=== PATIENT | male | born 1995 | race American Indian/Alaskan Native ===

== ENCOUNTER 2016-07-19 09:29 | Emergency (ER) | payer SELFPAY ==
[2016-07-19 09:39] VITALS: BP 131/84
--- NOTE | 2016-07-19 10:03 | XRay Report ---
CHEST 2 VIEWS INDICATION: Shortness of breath. COMPARISON: 11/11/2006 FINDINGS: PA and lateral chest radiographs again demonstrate normal heart size. Slightly prominent left pulmonary artery contour. No pleural effusions or CHF. Unremarkable bones. CONCLUSION: No acute chest process, as described. Please correlate. Thank you for the opportunity to participate in this patient's care.
[2016-07-19] MEDS ORDERED: PROVENTIL IH ONE (11:05)
--- NOTE | 2016-07-19 11:50 | Emergency Department Report ---
Entered by MARLENY MCARTHUR, acting as scribe for MARCOS MALDONADO PA. ED Asthma HPI - General Chief Complaint: Adult Asthma Stated Complaint: ASTHMA Time Seen by Provider: 07/19/16 11:05 Source: patient, family Mode of arrival: Ambulatory Limitations: No Limitations - History of Present Illness Initial Comments: 20 y/o male, with Hx of asthma, presents c/o wheezing that started last night as a result of running out of his meds 2 weeks ago. Sx includes SOB and cough but pt denies cold Sx, fever or chills. Meds include: ventilan, singular, flovent and albuterol. Pt also notes having seasonal allergies. MD Complaint: shortness of breath -: Last night Asthma History: adult onset Severity: mild Context: ran out of meds Associated Symptoms: dry cough - Related Data Current Asthma Therapy: other (ventilan, singular, flovent and albuterol) Previous Rx's Medication Instructions Recorded Last Taken Type ALBUTEROL Inhaler [Proair] 2 puff IH QID PRN #1 inhalation 07/19/16 Unknown Rx Albuterol Sulfate [Albuterol 0.63% 0.63 mg IH TID PRN #1 box 07/19/16 Unknown Rx NEBS] Fluticasone (Nf) [Flovent Hfa(Nf)] 2 puff IH BID #1 puff 07/19/16 Unknown Rx Montelukast [Singulair] 10 mg PO QPM #30 tablet 07/19/16 Unknown Rx Allergies Allergy/AdvReac Type Severity Reaction Status Date / Time No Known Allergies Allergy Unverified 07/19/16 09:35 ED Review of Systems Comment: All other systems reviewed and negative Constitutional: denies: chills, fever ENT: denies: other (Cold Sx, ) Respiratory: cough, shortness of breath, wheezing ED Past Medical Hx - Past Medical History Previous Medical History?: Yes Hx Asthma: Yes - Surgical History Past Surgical History?: No - Social History Smoking Status: Current Every Day Smoker Substance Use Type: Alcohol - Medications Home Medications: Home Medications Medication Instructions Recorded Confirmed Last Taken Type ALBUTEROL Inhaler [Proair] 2 puff IH QID PRN #1 inhalation 07/19/16 Unknown Rx Albuterol Sulfate [Albuterol 0.63% 0.63 mg IH TID PRN #1 box 07/19/16 Unknown Rx NEBS] Fluticasone (Nf) [Flovent Hfa(Nf)] 2 puff IH BID #1 puff 07/19/16 Unknown Rx Montelukast [Singulair] 10 mg PO QPM #30 tablet 07/19/16 Unknown Rx ED Physical Exam - General Limitations: No Limitations - Other Other exam information: GENERAL: Patient is alert and oriented x 3. No apparent distress, normal gait, atraumatic. HEAD: Head is normocephalic and atraumatic. EYES: Extraocular movements are intact. Pupils are equal, round, and reactive to light and accommodation. EARS: Symmetrical, atraumatic, non tender, ear canal clear with moderate cerumen , tympanic membrane non inflamed. Gross auditory nml bilaterally. NOSE: Nose symmetrical, nontender. Nares appeared normal. NECK: Supple. Non edematous, no carotid bruits. No lymphadenopathy or thyromegaly. LUNGS: Symmetrical with respiration. No rales or crackles, CTAB. Inspiratory/ Expiratory wheezing lower lungs, rhonchus on upper middle lobe HEART: Regular rate and rhythm with normal S1/S2 present. No murmurs, rubs, or gallops. EXTREMITIES/MUSCULOSKELETAL: No cyanosis, clubbing, rash, lesions or edema. Full ROM bilaterally. UE/LE Pulses 2+ bilaterally. LE and UE 5+ strength bilaterally SKIN: Warm and dry. No lesions, ulceration or induration present NEUROLOGIC: No focal deficit., Cranial nerves II - XII are grossly intact. No loss of sensation. No facial droop. PSYCHIATRIC: Mood is congruent with affect. ED Course Vital Signs 07/19/16 09:35 Temperature 98.2 F Pulse Rate 112 H Respiratory 22 Rate Blood Pressure 131/84 O2 Sat by Pulse 96 Oximetry ED Medical Decision Making - Medical Decision Making 20 y/o male, with Hx of asthma, presents c/o wheezing that started last night as a result of running out of his meds 2 weeks ago. Patient is in no acute distress at this time. He will be discharged home and is encouraged to follow up with a primary care provider. He is encouraged to return to the emergency room for any worsening symptoms. Discussed with patient refill his medications of Singulair 10 mg Prolene or Flovent and albuterol nebs for him to follow up with a primary care provider. I will refer him to [facility] for further management of chronic disease of asthma. ED Disposition Clinical Impression: Asthma Qualifiers: Asthma severity: unspecified severity Asthma complication type: uncomplicated Qualified Code(s): J45.909 - Unspecified asthma, uncomplicated Disposition: DISCHARGED TO HOME OR SELFCARE Is pt being admited?: No Does the pt Need Aspirin: No Condition: Stable Instructions: Asthma (ED) Additional Instructions: Please take albuterol pro-air Flovent and Singulair as prescribed. Follow up with the primary care provider for further evaluation and management of chronic asthma. Prescriptions: ALBUTEROL Inhaler [Proair] 2 puff IH QID PRN #1 inhalation PRN Reason: Shortness Of Breath Albuterol Sulfate [Albuterol 0.63% NEBS] 0.63 mg IH TID PRN #1 box PRN Reason: Wheezing Fluticasone (Nf) [Flovent Hfa(Nf)] 2 puff IH BID #1 puff Montelukast [Singulair] 10 mg PO QPM #30 tablet Referrals: PRIMARY CARE,MD [Primary Care Provider] - 3-5 Days [facility] [Outside] - 3-5 Days Forms: Work/School Release Form(ED) This documentation as recorded by the BLUE olmedo RYAN,accurately reflects the service I personally performed and the decisions made by me,MARCOS MALDONADO PA.
[2016-07-19] MEDS ORDERED: DELTASONE PO ONE (11:53)
== END 2016-07-19 11:59 | disposition home or self-care (01) ==
LOC: ED 09:29
DX: J45.909 Unspecified asthma, uncomplicated (principal); F17.200 Nicotine dependence, unspecified, uncomplicated
CPT/HCPCS: 71020; 99283; J7512

== ENCOUNTER 2016-09-13 06:59 | Emergency (ER) | payer SELFPAY ==
[2016-09-13 07:11] VITALS: BP 139/81
[2016-09-13] MEDS ORDERED: DUONEB 0.5 MG-3 MG/3 ML SOLN IH ONE ×3 (07:12→09:04)
[2016-09-13] MEDS ORDERED: DELTASONE PO ONE (07:13)
--- NOTE | 2016-09-13 08:01 | Emergency Department Report ---
ED Asthma HPI - General Chief Complaint: Adult Asthma Stated Complaint: ASTHMA Time Seen by Provider: 09/13/16 07:59 Source: patient Mode of arrival: Ambulatory Limitations: No Limitations - History of Present Illness Initial Comments: 20-year-old male past medical history asthma, smoker presents with complaint of wheeziness and asthma exacerbation since last night. Patient denies any history of intubations, last time he was in the ED was 2 years ago. On exam patient is speaking in full sentences no audible wheezing or stridor, states he has received prednisone and 2 nebulizer treatments since coming to the ED. Patient is ambulatory denies any significant respiratory distress states he feels significantly better. Denies any fevers chills or productive cough. States he ran out of his medicine including albuterol inhaler and nebulizer fluid at home. Patient does not know his baseline peak flow. Complaint: wheezing Onset/Timin -: days(s) Asthma History: childhood onset Severity: moderate Associated Symptoms: none - Related Data Previous Rx's Medication Instructions Recorded Last Taken Type ALBUTEROL Inhaler [Proair] 2 puff IH QID PRN #1 inhalation 07/19/16 Unknown Rx Albuterol Sulfate [Albuterol 0.63% 0.63 mg IH TID PRN #1 box 07/19/16 Unknown Rx NEBS] Fluticasone (Nf) [Flovent Hfa(Nf)] 2 puff IH BID #1 puff 07/19/16 Unknown Rx Montelukast [Singulair] 10 mg PO QPM #30 tablet 07/19/16 Unknown Rx ALBUTEROL Inhaler [ProAir HFA 2 puff IH QID PRN #1 inhalation 09/13/16 Unknown Rx Inhaler] ALBUTEROL NEB's [Proventil 0.083% 2.5 mg IH TID PRN #1 box 09/13/16 Unknown Rx NEBS] Prednisone [predniSONE 10 mg 10 mg PO .TAPER #1 tab.ds.pk 09/13/16 Unknown Rx (6-Day Pack, 21 Tabs)] Allergies Allergy/AdvReac Type Severity Reaction Status Date / Time No Known Allergies Allergy Verified 09/13/16 08:41 ED Review of Systems ROS: Stated complaint: ASTHMA Other details as noted in HPI Constitutional: denies: chills, fever Eyes: denies: eye pain, eye discharge, vision change ENT: denies: ear pain, throat pain Respiratory: wheezing. denies: cough, shortness of breath Cardiovascular: denies: chest pain, palpitations Endocrine: no symptoms reported Gastrointestinal: denies: abdominal pain, nausea, diarrhea Genitourinary: denies: urgency, dysuria Musculoskeletal: denies: back pain, joint swelling, arthralgia Skin: denies: rash, lesions Neurological: denies: headache, weakness, paresthesias Psychiatric: denies: anxiety, depression Hematological/Lymphatic: denies: easy bleeding, easy bruising ED Past Medical Hx - Past Medical History Hx Asthma: Yes - Surgical History Past Surgical History?: No - Social History Smoking Status: Current Every Day Smoker Substance Use Type: None - Medications Home Medications: Home Medications Medication Instructions Recorded Confirmed Last Taken Type ALBUTEROL Inhaler [Proair] 2 puff IH QID PRN #1 inhalation 07/19/16 Unknown Rx Albuterol Sulfate [Albuterol 0.63% 0.63 mg IH TID PRN #1 box 07/19/16 Unknown Rx NEBS] Fluticasone (Nf) [Flovent Hfa(Nf)] 2 puff IH BID #1 puff 07/19/16 Unknown Rx Montelukast [Singulair] 10 mg PO QPM #30 tablet 07/19/16 Unknown Rx ALBUTEROL Inhaler [ProAir HFA 2 puff IH QID PRN #1 inhalation 09/13/16 Unknown Rx Inhaler] ALBUTEROL NEB's [Proventil 0.083% 2.5 mg IH TID PRN #1 box 09/13/16 Unknown Rx NEBS] Prednisone [predniSONE 10 mg 10 mg PO .TAPER #1 tab.ds.pk 09/13/16 Unknown Rx (6-Day Pack, 21 Tabs)] ED Physical Exam - General Limitations: No Limitations General appearance: alert, in no apparent distress - Head Head exam: Present: atraumatic, normocephalic - Eye Eye exam: Present: normal appearance, PERRL, EOMI - ENT ENT exam: Present: mucous membranes moist - Neck Neck exam: Present: normal inspection - Respiratory Respiratory exam: Present: wheezes (mild bilateral wheezing on exam). Absent: respiratory distress - Cardiovascular Cardiovascular Exam: Present: regular rate, normal rhythm. Absent: systolic murmur, diastolic murmur, rubs, gallop - GI/Abdominal GI/Abdominal exam: Present: soft, normal bowel sounds - Rectal Rectal exam: Present: deferred - Extremities Exam Extremities exam: Present: normal inspection - Back Exam Back exam: Present: normal inspection - Neurological Exam Neurological exam: Present: alert, oriented X3 - Psychiatric Psychiatric exam: Present: normal affect, normal mood - Skin Skin exam: Present: warm, dry, intact, normal color. Absent: rash ED Course Vital Signs 09/13/16 09/13/16 09/13/16 07:04 07:16 07:32 Temperature 98 F Pulse Rate 98 H Pulse Rate [ 96 H 95 H Anterior Bilateral Throughout] Respiratory 20 Rate Respiratory 20 20 Rate [Anterior Bilateral Throughout] Blood Pressure 139/81 Blood Pressure 139/81 [Left] O2 Sat by Pulse 100 Oximetry 09/13/16 09/13/16 08:21 08:35 Temperature Pulse Rate Pulse Rate [ 96 H 95 H Anterior Bilateral Throughout] Respiratory Rate Respiratory 20 20 Rate [Anterior Bilateral Throughout] Blood Pressure Blood Pressure [Left] O2 Sat by Pulse Oximetry ED Medical Decision Making - Medical Decision Making A/P: asthma exacerbation, reactive airway disease 1- albuterol inhaler, albuterol nebulizer fluid, prednisone Dosepak 2- patient has experienced significant clinical relief of his wheezing, ambulating, 97% on room air O2 saturation 3- patient speaking in full sentences before discharge, we'll refer patient to primary care. I advised patient on smoking cessation. Critical care attestation.: If time is entered above; I have spent that time in minutes in the direct care of this critically ill patient, excluding procedure time. ED Disposition Clinical Impression: Asthma exacerbation Disposition: DC-01 TO HOME OR SELFCARE Is pt being admited?: No Does the pt Need Aspirin: No Condition: Stable Instructions: Asthma (ED), How to Stop Smoking (ED), Reactive Airways Disease ( ED) Prescriptions: ALBUTEROL Inhaler [ProAir HFA Inhaler] 2 puff IH QID PRN #1 inhalation PRN Reason: Shortness Of Breath ALBUTEROL NEB's [Proventil 0.083% NEBS] 2.5 mg IH TID PRN #1 box PRN Reason: Wheezing Prednisone [predniSONE 10 mg (6-Day Pack, 21 Tabs)] 10 mg PO .TAPER #1 tab.ds.pk Referrals: PRIMARY CAREMD [Primary Care Provider] - 3-5 Days [facility] [Outside] - 3-5 Days [facility] [Outside] - 3-5 Days KATHRYN ALEJANDRO MD [Staff Physician] - 3-5 Days Forms: Work/School Release Form(ED) Time of Disposition: 09:12
== END 2016-09-13 09:58 | disposition home or self-care (01) ==
LOC: ED 06:59
DX: J45.901 Unspecified asthma with (acute) exacerbation (principal); F17.210 Nicotine dependence, cigarettes, uncomplicated
CPT/HCPCS: 94640; 99283; J7512

== ENCOUNTER 2017-07-30 05:34 | Emergency (ER) | payer SELFPAY ==
[2017-07-30] MEDS ORDERED: DUONEB *Not for PRN Use IH ONE (05:41)
[2017-07-30] MEDS ORDERED: DELTASONE PO ONE (06:02)
[2017-07-30] MEDS ORDERED: ATROVENT IH ONE (07:36)
[2017-07-30] MEDS ORDERED: XOPENEX IH ONE (07:36)
--- NOTE | 2017-07-30 07:36 | Emergency Department Report ---
HPI - General Chief Complaint: Adult Asthma Time Seen by Provider: 07/30/17 07:17 - HPI HPI: Patient reports that he has difficulty breathing and history of asthma and nebulized treatment has not been helping. He said it started about 10:00 last night. Denies any fever. Reports some wheezing and some coughing. He said he started with him having a runny nose and progressed to cough and wheezing. Denies any nausea or vomiting. Denies any fever or chills. Patient says that he has a little short of breath with walking around but otherwise is okay when he rests. Denies any chest pain or abdominal pain. He is requesting a refill on his medication. Patient does not have a primary care physician. Pain is 0/ 10. ED Past Medical Hx - Past Medical History Previous Medical History?: Yes Hx Asthma: Yes - Surgical History Past Surgical History?: No - Family History Family history: hypertension - Social History Smoking Status: Current Every Day Smoker Substance Use Type: Marijuana Other Social History: Patient lives with family - Medications Home Medications: Home Medications Medication Instructions Recorded Confirmed Last Taken Type Fluticasone (Nf) [Flovent Hfa(Nf)] 2 puff IH BID #1 puff 07/19/16 Unknown Rx Montelukast [Singulair] 10 mg PO QPM #30 tablet 07/19/16 Unknown Rx ALBUTEROL Inhaler [ProAir HFA 2 puff IH QID PRN #1 inhalation 09/13/16 Unknown Rx Inhaler] ALBUTEROL NEB's [Proventil 0.083% 2.5 mg IH TID PRN #1 box 09/13/16 Unknown Rx NEBS] ALBUTEROL Inhaler [ProAir HFA 2 puff IH QID PRN #1 inhalation 07/30/17 Unknown Rx Inhaler] Albuterol Sulfate [Albuterol 0.63% 0.63 mg IH TID PRN #1 box 07/30/17 Unknown Rx NEBS] Cetirizine HCl [ZyrTEC] 10 mg PO QAM 14 Days #14 capsule 07/30/17 Unknown Rx Fluticasone [Flonase] 1 spray NS QDAY 14 Days #1 bottle 07/30/17 Unknown Rx Prednisone [predniSONE 10 mg 10 mg PO .TAPER #1 tab.ds.pk 07/30/17 Unknown Rx (6-Day Pack, 21 Tabs)] ED Review of Systems ROS: Stated complaint: MAIN Other details as noted in HPI Comment: All other systems reviewed and negative Constitutional: denies: chills, fever Eyes: denies: eye pain, eye discharge, vision change ENT: congestion. denies: ear pain, throat pain Respiratory: cough, shortness of breath, SOB with exertion, wheezing. denies: orthopnea, SOB at rest, stridor Cardiovascular: denies: chest pain, palpitations, edema, syncope Gastrointestinal: denies: nausea, vomiting Musculoskeletal: denies: back pain, joint swelling, arthralgia Skin: denies: rash, lesions, pruritus Neurological: denies: headache, weakness, vertigo Physical Exam - Physical Exam Vital Signs: Vital Signs 07/30/17 05:36 Temperature 97.8 F Pulse Rate 98 H Respiratory 26 H Rate Blood Pressure 141/90 O2 Sat by Pulse 98 Oximetry Vital Signs 07/30/17 07/30/17 07/30/17 05:36 08:28 08:33 Temperature 97.8 F Pulse Rate 98 H 77 Respiratory 26 H 20 Rate Blood Pressure 141/90 120/78 O2 Sat by Pulse 98 97 Oximetry General: This is a 21-year-old male well-nourished well-developed in no acute distress. Physical Exam: Head: Normocephalic atraumatic Ears:BIateral TM congested without erythema and loss of bony landmarks. Aaron EAC with normal exam. No mastoid bone tenderness. Mouth: Moist, no pharyngeal erythema or exudate . Positive tonsillar enlargement without tonsillar erythema or exudate. UVULA midline and oral airways patent. No peritonsillar abscess Neck: Nontender to palpate, supple, normal range of motion. No adenopathy. No c- spine tenderness. Nose: Bilateral nasal mucosa congested/erythema with clear drainage. Maxillary and frontal sinuses tender to palpate. Eyes: Bilateral Sclerae and conjunctiva without injection. Bilateral pupils equal and reactive to light. Lungs: Patient will reason to upper lung paz. Positive dry cough. Normal work of breathing and no chest wall tenderness. Tachypneic at 26 CV: S1, S2. Regular rate and rhythm negative murmur. Capillary refill is less than 3 seconds Abdomen: Nontender to palpation in all quadrants: No guarding or rebound tenderness. Positive bowel sounds in all quadrants Extremity: No clubbing, cyanosis or edema. +2 pulses in all extremities and no neurovascular compromise Skin: Clean dry and intact, no rashes or lesions Psych: Normal mood and behavior ED Course Vital Signs 07/30/17 05:36 Temperature 97.8 F Pulse Rate 98 H Respiratory 26 H Rate Blood Pressure 141/90 O2 Sat by Pulse 98 Oximetry Vital Signs 07/30/17 07/30/17 07/30/17 05:36 08:28 08:33 Temperature 97.8 F Pulse Rate 98 H 77 Respiratory 26 H 20 Rate Blood Pressure 141/90 120/78 O2 Sat by Pulse 98 97 Oximetry - Reevaluation(s) Reevaluation #1: 07/30/17 07:41 Given DuoNeb 1 amp nebulizer and does some milligram by mouth which did not completely relieve his wheezing. Reevaluation #2: 07/30/17 08:42 Patient was given Xopenex 1.25 mg and Atrovent 0.5 mg nebulizer and upon reevaluation lungs are clear. His vital signs are stable and his respirations are 20. ED Medical Decision Making - Medical Decision Making ED course: Patient here for asthma exacerbation and has been using his albuterol nebulizer which she said is not working. Patient and found to have acute asthma exacerbation and was given nebulizer treatment in emergency room which helped and upper evaluation is that he is feeling better. He was also given steroids. Patient will be discharged home with steroids, albuterol nebulizer and inhaler and Zyrtec and Flonase. Diagnostic and labs: Diagnostics her lab tests done. Review of previous visits. Patient has been here in 2017 for 2 visits for asthma exacerbation Education: Pt is a smoker and I discussed with him smoking cessation and that smoking will cause his asthma flareup and he will need to quit. I also gave him discharge information on how to stop smoking. Patient voiced understanding Assessment: Acute asthma exacerbation mild intermittent, upper respiratory tract infection with cough and congestion, nicotine abuse. Medication in emergency room: DuoNeb 1 amp, Deltasone 60 mg by mouth, Atrovent 0.5 mg and Xopenex 1.25 mg Medication upper discharge: Medrol Dosepak, Flonase, Zyrtec, albuterol inhaler and nebulizer Plan follow-up: Patient encouraged to follow up with primary care physician. He does not have a primary care physician so I gave him discharge information on [facility] and encouraged him to call today to schedule an appointment for management of chronic asthma. Critical care attestation.: If time is entered above; I have spent that time in minutes in the direct care of this critically ill patient, excluding procedure time. ED Disposition Clinical Impression: Upper respiratory infection with cough and congestion, Nicotine abuse Asthma attack Qualifiers: Asthma severity: mild Asthma persistence: intermittent Qualified Code(s): J45.21 - Mild intermittent asthma with (acute) exacerbation Disposition: TO HOME OR SELFCARE Is pt being admited?: No Does the pt Need Aspirin: No Condition: Stable Instructions: Asthma (ED), How to Stop Smoking (ED), Upper Respiratory Infection (ED), Acute Cough (ED) Additional Instructions: Please follow up with [facility] of Medical Center in 2 days as discussed. Take medication as prescribed Follow discharge instructions on smoking cessation Prescriptions: ALBUTEROL Inhaler [ProAir HFA Inhaler] 2 puff IH QID PRN #1 inhalation PRN Reason: wheezing and cough Albuterol Sulfate [Albuterol 0.63% NEBS] 0.63 mg IH TID PRN #1 box PRN Reason: Wheezing and cough Cetirizine HCl [ZyrTEC] 10 mg PO QAM 14 Days #14 capsule Fluticasone [Flonase] 1 spray NS QDAY 14 Days #1 bottle Prednisone [predniSONE 10 mg (6-Day Pack, 21 Tabs)] 10 mg PO .TAPER #1 tab.ds.pk Referrals: [facility] [Outside] - 08/01/17 Forms: Work/School Release Form(ED)
[2017-07-30 08:33] VITALS: BP 120/78
== END 2017-07-30 08:55 | disposition home or self-care (01) ==
LOC: ED 05:34
DX: J06.9 Acute upper respiratory infection, unspecified (principal); J45.21 Mild intermittent asthma with (acute) exacerbation; F17.200 Nicotine dependence, unspecified, uncomplicated
CPT/HCPCS: 99283; J7512

== ENCOUNTER 2017-08-13 05:56 | Emergency (ER) | payer SELFPAY ==
[2017-08-13 06:01] VITALS: BP 144/89
== END 2017-08-13 07:38 | disposition left against medical advice (07) ==
LOC: ED 05:56
DX: R06.02 Shortness of breath (principal); Z53.21 Procedure and treatment not carried out due to patient leaving prior to being seen by health care provider
CPT/HCPCS: 93005; 93010

== ENCOUNTER 2018-08-01 03:28 | Emergency (ER) | payer OTHER ==
[2018-08-01] MEDS ORDERED: PROVENTIL IH ONE ×3 (03:45→06:18)
[2018-08-01] MEDS ORDERED: ATROVENT IH ONE ×2 (03:47→03:52)
[2018-08-01 04:07] LABS: Basophils # (Auto) 0.1 K/mm3 (0.0-0.1); Basophils % (Auto) 0.8 % (0.0-1.8); Eosinophils # (Auto) 0.9 K/mm3 (0.0-0.4); Eosinophils % (Auto) 14.5 % (0.0-4.3); Hematocrit 48.3 % (35.5-45.6); Hemoglobin 16.4 gm/dl (11.8-15.2); Lymphocytes # (Auto) 2.2 K/mm3 (1.2-5.4); Mean Corpuscular HGB Conc 34 % (32-34); Mean Corpuscular Volume 94 fl (84-94); Monocytes # (Auto) 0.4 K/mm3 (0.0-0.8); Monocytes % (Auto) 7.3 % (0.0-7.3); Platelet Count 222 K/mm3 (140-440); Red Blood Count 5.17 M/mm3 (3.65-5.03); Red Cell Distribution Width 14.4 % (13.2-15.2)
--- NOTE | 2018-08-01 04:25 | XRay Report ---
PROCEDURE: XR CHEST 1V AP TECHNIQUE: Chest radiograph single view. HISTORY: asthma COMPARISONS: None . FINDINGS: Heart: Normal. Mediastinum/Vessels: Normal. Lungs/Pleural space: Normal. Bony thorax: No acute osseous abnormality. Life support devices: None. IMPRESSION: No acute cardiopulmonary abnormality. This document is electronically signed by Clyde Merino MD., Aug 01 2018 04:23:15 AM ET
[2018-08-01 04:29] LABS: Alanine Aminotransferase 11 units/L (7-56); Albumin 3.8 g/dL (3.9-5); BUN/Creatinine Ratio 7; Blood Urea Nitrogen 7 mg/dL (9-20); Calcium 9.2 mg/dL (8.4-10.2); Hemolysis Index 16
[2018-08-01] MEDS ORDERED: DELTASONE PO ONE (05:22)
[2018-08-01] MEDS ORDERED: DELTASONE ONE (05:22)
[2018-08-01] MEDS ORDERED: DELTASONE PO NR (07:00)
[2018-08-01 07:12] VITALS: BP 132/83
--- NOTE | 2018-08-01 07:21 | Emergency Department Report ---
ED Asthma HPI - General Chief Complaint: Adult Asthma Stated Complaint: ASTHMA Time Seen by Provider: 08/01/18 06:13 Source: patient Mode of arrival: Ambulatory Limitations: No Limitations - History of Present Illness Initial Comments: 22 year old male with a past history asthma without previous intubations presents complaining of increased wheezing and shortness of breath the past week. Occasional cough only. Patient has chest pressure with inspiration. He denies fever, calf tenderness, or leg edema. He is almost out of his albuterol nebulizer and does not currently have an inhaler or home steroids. - Related Data Previous Rx's Medication Instructions Recorded Last Taken Type Fluticasone (Nf) [Flovent Hfa(Nf)] 2 puff IH BID #1 puff 07/19/16 Unknown Rx Montelukast [Singulair] 10 mg PO QPM #30 tablet 07/19/16 Unknown Rx ALBUTEROL Inhaler (OR & NICU) 2 puff IH QID PRN #1 inhalation 09/13/16 Unknown Rx [ProAir HFA Inhaler] Albuterol Sulfate [Albuterol 0.63% 0.63 mg IH TID PRN #1 box 07/30/17 Unknown Rx NEBS] Cetirizine HCl [ZyrTEC] 10 mg PO QAM 14 Days #14 capsule 07/30/17 Unknown Rx Fluticasone [Flonase] 1 spray NS QDAY 14 Days #1 bottle 07/30/17 Unknown Rx ALBUTEROL Inhaler (OR & NICU) 2 puff IH QID PRN #1 inhalation 08/01/18 Unknown Rx [ProAir HFA Inhaler] ALBUTEROL NEB's [Proventil 0.083% 2.5 mg IH TID PRN #1 box 08/01/18 Unknown Rx NEBS] Prednisone [predniSONE 10 mg 10 mg PO .TAPER #1 tab.ds.pk 08/01/18 Unknown Rx (6-Day Pack, 21 Tabs)] Allergies Allergy/AdvReac Type Severity Reaction Status Date / Time No Known Allergies Allergy Verified 09/13/16 08:41 ED Review of Systems ROS: Stated complaint: ASTHMA Other details as noted in HPI Comment: All other systems reviewed and negative ED Past Medical Hx - Past Medical History Previous Medical History?: Yes Hx Asthma: Yes - Surgical History Past Surgical History?: No - Social History Smoking Status: Current Every Day Smoker Substance Use Type: None - Medications Home Medications: Home Medications Medication Instructions Recorded Confirmed Last Taken Type Fluticasone (Nf) [Flovent Hfa(Nf)] 2 puff IH BID #1 puff 07/19/16 Unknown Rx Montelukast [Singulair] 10 mg PO QPM #30 tablet 07/19/16 Unknown Rx ALBUTEROL Inhaler (OR & NICU) 2 puff IH QID PRN #1 inhalation 09/13/16 Unknown Rx [ProAir HFA Inhaler] Albuterol Sulfate [Albuterol 0.63% 0.63 mg IH TID PRN #1 box 07/30/17 Unknown Rx NEBS] Cetirizine HCl [ZyrTEC] 10 mg PO QAM 14 Days #14 capsule 07/30/17 Unknown Rx Fluticasone [Flonase] 1 spray NS QDAY 14 Days #1 bottle 07/30/17 Unknown Rx ALBUTEROL Inhaler (OR & NICU) 2 puff IH QID PRN #1 inhalation 08/01/18 Unknown Rx [ProAir HFA Inhaler] ALBUTEROL NEB's [Proventil 0.083% 2.5 mg IH TID PRN #1 box 08/01/18 Unknown Rx NEBS] Prednisone [predniSONE 10 mg 10 mg PO .TAPER #1 tab.ds.pk 08/01/18 Unknown Rx (6-Day Pack, 21 Tabs)] ED Physical Exam - General Limitations: No Limitations - Other Other exam information: General: No limitations, patient is alert in no acute distress Head exam: Atraumatic, normocephalic Eyes exam: Normal appearance ENT: Moist mucous membrane Neck exam: Normal inspection, full range of motion, no meningismus nontender Respiratory exam: Patient examined after completing however continues to have persistent expiratory wheezing. No tachypnea or accessory muscle use. Patient reports feeling better. Cardiovascular: Normal rate and rhythm, normal heart sounds Abdomen: Soft, nondistended, and nontender, with normal bowel sounds, no rebound, or guarding Extremity: Full range of motion normal inspection no deformity, no calf te nderness or edema Back: Normal Inspection, full range of motion, no tenderness Neurologic: Alert, oriented x3, cranial nerves intact, no motor or sensory deficit Psychiatric: normal affect, normal mood Skin: Warm, dry, intact ED Course Vital Signs 08/01/18 08/01/18 08/01/18 03:33 03:48 03:53 Temperature 98.1 F Pulse Rate 107 H Pulse Rate [ 101 H Anterior Bilateral] Respiratory 22 Rate Respiratory 20 Rate [Anterior Bilateral] Blood Pressure 153/93 Blood Pressure [Left] O2 Sat by Pulse 96 94 Oximetry 08/01/18 08/01/18 06:30 07:12 Temperature Pulse Rate 88 Pulse Rate [ 81 Anterior Bilateral] Respiratory 19 Rate Respiratory 20 Rate [Anterior Bilateral] Blood Pressure Blood Pressure 132/83 [Left] O2 Sat by Pulse 100 Oximetry ED Medical Decision Making - Lab Data Result diagrams: 08/01/18 03:59 08/01/18 03:58 Lab Results 08/01/18 08/01/18 Range/Units 03:58 03:59 WBC 6.0 (4.5-11.0) K/mm3 RBC 5.17 H (3.65-5.03) M/mm3 Hgb 16.4 H (11.8-15.2) gm/dl Hct 48.3 H (35.5-45.6) % MCV 94 (84-94) fl MCH 32 (28-32) pg MCHC 34 (32-34) % RDW 14.4 (13.2-15.2) % Plt Count 222 (140-440) K/mm3 Lymph % (Auto) 37.0 H (13.4-35.0) % [place] % (Auto) 7.3 (0.0-7.3) % Eos % (Auto) 14.5 H (0.0-4.3) % Baso % (Auto) 0.8 (0.0-1.8) % Lymph # 2.2 (1.2-5.4) K/mm3 [place] # 0.4 (0.0-0.8) K/mm3 Eos # 0.9 H (0.0-0.4) K/mm3 Baso # 0.1 (0.0-0.1) K/mm3 Seg Neutrophils % 40.4 (40.0-70.0) % Seg Neutrophils # 2.4 (1.8-7.7) K/mm3 Sodium 142 (137-145) mmol/L Potassium 4.2 (3.6-5.0) mmol/L Chloride 104.8 (98-107) mmol/L Carbon Dioxide 27 (22-30) mmol/L Anion Gap 14 mmol/L BUN 7 L (9-20) mg/dL Creatinine 1.0 (0.8-1.5) mg/dL Estimated GFR > 60 ml/min BUN/Creatinine Ratio 7 % Glucose 98 (75-100) mg/dL Calcium 9.2 (8.4-10.2) mg/dL Total Bilirubin 0.30 (0.1-1.2) mg/dL AST 13 (5-40) units/L ALT 11 (7-56) units/L Alkaline Phosphatase 76 (35-129) units/L Total Protein 6.7 (6.3-8.2) g/dL Albumin 3.8 L (3.9-5) g/dL Albumin/Globulin Ratio 1.3 % - Radiology Data Radiology results: report reviewed PROCEDURE: XR CHEST 1V AP TECHNIQUE: Chest radiograph single view. HISTORY: asthma COMPARISONS: None . FINDINGS: Heart: Normal. Mediastinum/Vessels: Normal. Lungs/Pleural space: Normal. Bony thorax: No acute osseous abnormality. Life support devices: None. IMPRESSION: No acute cardiopulmonary abnormality. - Medical Decision Making Symptoms improved with ED treatment - Differential Diagnosis asthma, pneumonia, bronchitis Critical Care Time: No Critical care attestation.: If time is entered above; I have spent that time in minutes in the direct care of this critically ill patient, excluding procedure time. ED Disposition Clinical Impression: Asthma exacerbation Disposition: DC-01 TO HOME OR SELFCARE Is pt being admited?: No Does the pt Need Aspirin: No Condition: Stable Instructions: Asthma (ED) Additional Instructions: Take the medication as prescribed. Follow up with your doctor or the clinic/doctor provided. Return if symptoms worsen as indicated by your discharge instructions Prescriptions: Prednisone [predniSONE 10 mg (6-Day Pack, 21 Tabs)] 10 mg PO .TAPER #1 tab.ds.pk ALBUTEROL Inhaler (OR & NICU) [ProAir HFA Inhaler] 2 puff IH QID PRN #1 inhalation PRN Reason: wheezing and cough ALBUTEROL NEB's [Proventil 0.083% NEBS] 2.5 mg IH TID PRN #1 box PRN Reason: Wheezing Referrals: BOB ALEX MD [Primary Care Provider] - 3-5 Days Time of Disposition: 07:56
== END 2018-08-01 08:05 | disposition home or self-care (01) ==
LOC: ED 03:28
DX: J45.901 Unspecified asthma with (acute) exacerbation (principal); F17.200 Nicotine dependence, unspecified, uncomplicated
CPT/HCPCS: 36415; 71045; 80053; 85025; 94640; 99284; J7512

== ENCOUNTER 2019-01-09 19:26 | Emergency (ER) | payer OTHER ==
[2019-01-09 19:31] VITALS: BP 143/89
--- NOTE | 2019-01-09 19:54 | Event Note ---
ED Screening Note Date of service: 01/09/19 Time: 19:50 ED Screening Note: This is a 23 y.o. M. that presents to the ER with chest tightness, dyspnea, and cough since last night. PMH of asthma Patient mom states he ran out singular and inhaler. He used nebulizer a few times with minimal improvement of symptoms. This initial assessment/diagnostic orders/clinical plan/treatment(s) is/are subject to change based on patients health status, clinical progression and re- assessment by fellow clinical providers in the ED. Further treatment and workup at subsequent clinical providers discretion. Patient/guardian urged not to elope from the ED as their condition may be serious if not clinically assessed and managed. Initial orders include: CXR
--- NOTE | 2019-01-09 20:25 | XRay Report ---
CHEST 2 VIEWS INDICATION / CLINICAL INFORMATION: cough and chest discomfort. COMPARISON: 08/01/2018 FINDINGS: SUPPORT DEVICES: None. HEART / MEDIASTINUM: No significant abnormality. LUNGS / PLEURA: No significant pulmonary or pleural abnormality. No pneumothorax. ADDITIONAL FINDINGS: No significant additional findings. IMPRESSION: 1. No acute findings. Signer Name: Dylon Valencia MD Signed: 01/09/2019 8:21 PM Workstation Name: [id number]
[2019-01-09] MEDS ORDERED: DELTASONE PO ONE (20:29)
--- NOTE | 2019-01-09 20:33 | Emergency Department Report ---
ED Asthma HPI - General Chief Complaint: Adult Asthma Stated Complaint: ASTHMA/MAIN Time Seen by Provider: 01/09/19 19:50 Source: patient Mode of arrival: Ambulatory Limitations: No Limitations - History of Present Illness Initial Comments: Leonidas is a 23 yo male with hx of mild intermittent asthma since childhood,. He presents with shortness of breath, wheezing and chest tightness. No fever. Asthma mostly triggered by strong chemicals at work. 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 No hx of tobacco use. Normally comes to the ED once a year. MD Complaint: "asthma attack" -: Gradual, days(s) (2) Asthma History: childhood onset, history of prior ED visit Severity: mild Context: ran out of meds Associated Symptoms: dry cough Treatments Prior to Arrival: other (none) - Related Data Current Asthma Therapy: none Previous Rx's Medication Instructions Recorded Last Taken Type Fluticasone (Nf) [Flovent Hfa(Nf)] 2 puff IH BID #1 puff 07/19/16 Unknown Rx Montelukast [Singulair] 10 mg PO QPM #30 tablet 07/19/16 Unknown Rx ALBUTEROL Inhaler (OR & NICU) 2 puff IH QID PRN #1 inhalation 09/13/16 Unknown Rx [ProAir HFA Inhaler] Albuterol Sulfate [Albuterol 0.63% 0.63 mg IH TID PRN #1 box 07/30/17 Unknown Rx NEBS] Cetirizine HCl [ZyrTEC] 10 mg PO QAM 14 Days #14 capsule 07/30/17 Unknown Rx Fluticasone [Flonase] 1 spray NS QDAY 14 Days #1 bottle 07/30/17 Unknown Rx ALBUTEROL Inhaler (OR & NICU) 2 puff IH QID PRN #1 inhalation 08/01/18 Unknown Rx [ProAir HFA Inhaler] ALBUTEROL NEB's [Proventil 0.083% 2.5 mg IH TID PRN #1 box 08/01/18 Unknown Rx NEBS] Prednisone [predniSONE 10 mg 10 mg PO .TAPER #1 tab.ds.pk 08/01/18 Unknown Rx (6-Day Pack, 21 Tabs)] ALBUTEROL Inhaler (OR & NICU) 2 puff IH QID PRN #1 device 01/09/19 Unknown Rx [ProAir HFA Inhaler] predniSONE [Deltasone] 3 tab PO QDAY 3 Days #9 tab 01/09/19 Unknown Rx Allergies Allergy/AdvReac Type Severity Reaction Status Date / Time No Known Allergies Allergy Verified 09/13/16 08:41 ED Review of Systems ROS: Stated complaint: ASTHMA/MAIN Other details as noted in HPI Comment: All other systems reviewed and negative Constitutional: denies: fever, malaise Respiratory: cough, shortness of breath, wheezing Cardiovascular: denies: chest pain Gastrointestinal: denies: abdominal pain, vomiting Genitourinary: denies: as per HPI Skin: denies: rash, lesions ED Past Medical Hx - Past Medical History Previous Medical History?: Yes Hx Asthma: Yes - Social History Smoking Status: Never Smoker - Medications Home Medications: Home Medications Medication Instructions Recorded Confirmed Last Taken Type Fluticasone (Nf) [Flovent Hfa(Nf)] 2 puff IH BID #1 puff 07/19/16 Unknown Rx Montelukast [Singulair] 10 mg PO QPM #30 tablet 07/19/16 Unknown Rx ALBUTEROL Inhaler (OR & NICU) 2 puff IH QID PRN #1 inhalation 09/13/16 Unknown Rx [ProAir HFA Inhaler] Albuterol Sulfate [Albuterol 0.63% 0.63 mg IH TID PRN #1 box 07/30/17 Unknown Rx NEBS] Cetirizine HCl [ZyrTEC] 10 mg PO QAM 14 Days #14 capsule 07/30/17 Unknown Rx Fluticasone [Flonase] 1 spray NS QDAY 14 Days #1 bottle 07/30/17 Unknown Rx ALBUTEROL Inhaler (OR & NICU) 2 puff IH QID PRN #1 inhalation 08/01/18 Unknown Rx [ProAir HFA Inhaler] ALBUTEROL NEB's [Proventil 0.083% 2.5 mg IH TID PRN #1 box 08/01/18 Unknown Rx NEBS] Prednisone [predniSONE 10 mg 10 mg PO .TAPER #1 tab.ds.pk 08/01/18 Unknown Rx (6-Day Pack, 21 Tabs)] ALBUTEROL Inhaler (OR & NICU) 2 puff IH QID PRN #1 device 01/09/19 Unknown Rx [ProAir HFA Inhaler] predniSONE [Deltasone] 3 tab PO QDAY 3 Days #9 tab 01/09/19 Unknown Rx ED Physical Exam - General Limitations: No Limitations General appearance: alert, in no apparent distress - Head Head exam: Present: atraumatic, normocephalic - Eye Eye exam: Present: normal appearance - ENT ENT exam: Present: mucous membranes moist - Neck Neck exam: Present: normal inspection - Respiratory Respiratory exam: Present: wheezes, decreased breath sounds, prolonged expiratory. Absent: respiratory distress, rhonchi, chest wall tenderness, accessory muscle use - Cardiovascular Cardiovascular Exam: Present: regular rate, normal rhythm, normal heart sounds. Absent: systolic murmur, diastolic murmur, rubs, gallop - GI/Abdominal GI/Abdominal exam: Present: soft, normal bowel sounds. Absent: distended - Rectal Rectal exam: Present: deferred - Extremities Exam Extremities exam: Present: normal inspection - Back Exam Back exam: Present: normal inspection - Neurological Exam Neurological exam: Present: alert, oriented X3 - Psychiatric Psychiatric exam: Present: normal affect, normal mood - Skin Skin exam: Present: warm, dry, intact, normal color. Absent: rash ED Course Vital Signs 01/09/19 01/09/19 19:30 19:51 Temperature 98.4 F 98.4 F Pulse Rate 103 H 103 H Respiratory 18 18 Rate Blood Pressure 143/89 143/89 O2 Sat by Pulse 100 100 Oximetry ED Medical Decision Making - Radiology Data Radiology results: report reviewed Chest radiograph no acute process according to radiology report - Medical Decision Making Mild asthma exacerbation: Mr. Augustin appears well. No work of breathing. Receive DuoNeb and prednisone in the emergency department. Prescribed albuterol MDI and prednisone burst therapy. Refer to outside clinic. Critical care attestation.: If time is entered above; I have spent that time in minutes in the direct care of this critically ill patient, excluding procedure time. ED Disposition Clinical Impression: Asthma exacerbation Disposition: DC-01 TO HOME OR SELFCARE Is pt being admited?: No Does the pt Need Aspirin: No Condition: Stable Instructions: Asthma (ED) Prescriptions: predniSONE [Deltasone] 3 tab PO QDAY 3 Days #9 tab ALBUTEROL Inhaler (OR & NICU) [ProAir HFA Inhaler] 2 puff IH QID PRN #1 device PRN Reason: Shortness Of Breath Referrals: [facility] [Outside] - 3-5 Days
[2019-01-09] MEDS: DUONEB *Not for PRN Use IH ONE ×2 (20:52→21:10)
== END 2019-01-09 21:15 | disposition home or self-care (01) ==
LOC: ED 19:26
DX: J45.901 Unspecified asthma with (acute) exacerbation (principal); Z79.899 Other long term (current) drug therapy
CPT/HCPCS: 71046; 94640; 99284; J7512; 94644

== ENCOUNTER 2019-07-12 09:34 | Emergency (ER) | payer SELFPAY | END 2019-07-12 10:43 | disposition home or self-care (01) | LOC: ED 09:34 | DX: J45.901 Unspecified asthma with (acute) exacerbation (principal); Z79.899 Other long term (current) drug therapy | CPT/HCPCS: 94640; 99282; J7512 ==

== ENCOUNTER 2019-07-22 05:13 | Emergency (ER) | payer SELFPAY ==
[2019-07-22] MEDS ORDERED: IPRATROPIUM 0.02% NEBU 2.5 ML IH ONE ×2 (05:20→06:05)
[2019-07-22] MEDS ORDERED: ALBUTEROL 2.5 MG/3 ML NEBU IH ONE ×2 (05:20→06:05)
[2019-07-22] MEDS ORDERED: methylPREDNISolone Sod Succinate 125 MG/2 ML INJ IV ONE (05:27)
[2019-07-22] MEDS ORDERED: MAGNESIUM SULFATE 2 GM/50 ML BAG IV ONE ×2 (05:27)
[2019-07-22] MEDS ORDERED: methylPREDNISolone Sod Succinate 125 MG/2 ML INJ ONE (05:27)
--- NOTE | 2019-07-22 05:29 | Event Note ---
ED Screening Note Date of service: 07/22/19 Time: 05:28 ED Screening Note: Patient is a 23-year-old male with a known history of asthma that presents emergency room with complaint plaints of shortness of breath and difficulty breathing. Patient noted to have increased work of breathing and retractions. Patient started on a DuoNeb and will have magnesium and Solu-Medrol given. Patient will have labs and a chest x-ray done. This initial assessment/diagnostic orders/clinical plan/treatment(s) is/are subject to change based on patients health status, clinical progression and re- assessment by fellow clinical providers in the ED. Further treatment and workup at subsequent clinical providers discretion. Patient/guardian urged not to elope from the ED as their condition may be serious if not clinically assessed and managed. Initial orders include: Magnesium, Solu-Medrol, DuoNeb CBC, CMP, chest x-ray
[2019-07-22 05:46] LABS: Basophils % (Auto) 0.7 % (0.0-1.8); Eosinophils # (Auto) 0.5 K/mm3 (0.0-0.4); Eosinophils % (Auto) 7.3 % (0.0-4.3); Hematocrit 50.7 % (35.5-45.6); Hemoglobin 16.9 gm/dl (11.8-15.2); Lymphocytes # (Auto) 2.7 K/mm3 (1.2-5.4); Lymphocytes % (Auto) 42.4 % (13.4-35.0); Mean Corpuscular HGB Conc 33 % (32-34); Mean Corpuscular Volume 95 fl (84-94); Monocytes # (Auto) 0.5 K/mm3 (0.0-0.8); Monocytes % (Auto) 7.3 % (0.0-7.3); Platelet Count 215 K/mm3 (140-440); Red Blood Count 5.33 M/mm3 (3.65-5.03); Red Cell Distribution Width 14.1 % (13.2-15.2)
--- NOTE | 2019-07-22 06:04 | XRay Report ---
CHEST 1 VIEW 0535 INDICATION / CLINICAL INFORMATION: MAIN: Dyspnea SINCE ASTHMA ATTACK LAST NIGHT. COMPARISON: 01/09/2019 FINDINGS: SUPPORT DEVICES: None HEART / MEDIASTINUM: No significant abnormality. LUNGS / PLEURA: No significant pulmonary or pleural abnormality. No pneumothorax. ADDITIONAL FINDINGS: No significant additional findings. IMPRESSION: No significant acute abnormality Signer Name: Sachin Chambers MD Signed: 07/22/2019 6:00 AM Workstation Name: [id number]
[2019-07-22 06:14] LABS: Alanine Aminotransferase 12 units/L (7-56); Albumin 4.1 g/dL (3.9-5); BUN/Creatinine Ratio 8; Blood Urea Nitrogen 9 mg/dL (9-20); Calcium 9.3 mg/dL (8.4-10.2); Hemolysis Index 12
--- NOTE | 2019-07-22 07:29 | Emergency Department Report ---
ED General Adult HPI - General Chief complaint: Dyspnea/Respdistress Stated complaint: ASTHMA Time Seen by Provider: 07/22/19 06:23 Source: patient Mode of arrival: Ambulatory Limitations: No Limitations - History of Present Illness Initial comments: This is a 23-year-old man who was suffering from an asthma exacerbation. He states he feels much better now after nebulized therapy. He received magnesium and Solu-Medrol prior to my arrival as well. He states he has a home neb machine and does have medication but it has not been working. He denies fever chills or significant cough. He states he has never been admitted to the hospital for asthma. -: hour(s) Associated Symptoms: denies other symptoms - Related Data Previous Rx's Medication Instructions Recorded Last Taken Type Albuterol INH(or & Nicu Only) 2 puff IH QID PRN #1 inhalation 07/12/19 Unknown Rx [ProAir HFA Inhaler] Cetirizine HCl [ZyrTEC] 10 mg PO QAM 14 Days #14 capsule 07/12/19 Unknown Rx Fluticasone (Nf) [Flovent Hfa(Nf)] 2 puff IH BID #1 puff 07/12/19 Unknown Rx predniSONE [Deltasone] 20 mg PO DAILY #5 tablet 07/12/19 Unknown Rx ALBUTEROL NEB's [Proventil 0.083% 2.5 mg IH TID PRN #1 box 07/22/19 Unknown Rx NEBS] Montelukast [Singulair] 10 mg PO QPM #30 tablet 07/22/19 Unknown Rx predniSONE [Deltasone] 30 mg PO QDAY #25 tab 07/22/19 Unknown Rx Allergies Allergy/AdvReac Type Severity Reaction Status Date / Time No Known Allergies Allergy Verified 09/13/16 08:41 ED Review of Systems ROS: Stated complaint: ASTHMA Other details as noted in HPI Constitutional: denies: chills, fever Eyes: denies: eye pain, eye discharge, vision change ENT: denies: ear pain, throat pain Respiratory: shortness of breath, wheezing. denies: cough Cardiovascular: denies: chest pain, palpitations Endocrine: no symptoms reported Gastrointestinal: denies: abdominal pain, nausea, diarrhea Genitourinary: denies: urgency, dysuria Musculoskeletal: denies: back pain, joint swelling, arthralgia Skin: denies: rash, lesions Neurological: denies: headache, weakness, paresthesias Psychiatric: denies: anxiety, depression Hematological/Lymphatic: denies: easy bleeding, easy bruising ED Past Medical Hx - Past Medical History Previous Medical History?: Yes Hx Asthma: Yes - Social History Smoking Status: Never Smoker Substance Use Type: None - Medications Home Medications: Home Medications Medication Instructions Recorded Confirmed Last Taken Type Albuterol INH(or & Nicu Only) 2 puff IH QID PRN #1 inhalation 07/12/19 Unknown Rx [ProAir HFA Inhaler] Cetirizine HCl [ZyrTEC] 10 mg PO QAM 14 Days #14 capsule 07/12/19 Unknown Rx Fluticasone (Nf) [Flovent Hfa(Nf)] 2 puff IH BID #1 puff 07/12/19 Unknown Rx predniSONE [Deltasone] 20 mg PO DAILY #5 tablet 07/12/19 Unknown Rx ALBUTEROL NEB's [Proventil 0.083% 2.5 mg IH TID PRN #1 box 07/22/19 Unknown Rx NEBS] Montelukast [Singulair] 10 mg PO QPM #30 tablet 07/22/19 Unknown Rx predniSONE [Deltasone] 30 mg PO QDAY #25 tab 07/22/19 Unknown Rx ED Physical Exam - General Limitations: No Limitations General appearance: alert, in no apparent distress - Head Head exam: Present: atraumatic, normocephalic - Eye Eye exam: Present: normal appearance. Absent: scleral icterus - ENT ENT exam: Present: mucous membranes moist - Neck Neck exam: Present: normal inspection - Respiratory Respiratory exam: Present: other (Almost imperceptible expiratory wheeze, good air exchange, no accessory muscle use, normal work of breathing). Absent: respiratory distress - Cardiovascular Cardiovascular Exam: Present: regular rate, normal rhythm. Absent: systolic murmur, diastolic murmur, rubs, gallop - GI/Abdominal GI/Abdominal exam: Present: soft, normal bowel sounds. Absent: distended, tenderness, guarding - Rectal Rectal exam: Present: deferred - Extremities Exam Extremities exam: Present: normal inspection, normal capillary refill. Absent: calf tenderness - Back Exam Back exam: Present: normal inspection - Neurological Exam Neurological exam: Present: alert, oriented X3, CN II-XII intact. Absent: motor sensory deficit - Psychiatric Psychiatric exam: Present: normal affect, normal mood - Skin Skin exam: Present: warm, dry, intact, normal color. Absent: rash ED Course Vital Signs 07/22/19 07/22/19 05:15 06:08 Temperature 97.3 F L Pulse Rate 108 H Pulse Rate [ 76 Bilateral] Respiratory 30 H Rate Respiratory 22 Rate [Bilateral ] Blood Pressure 148/88 O2 Sat by Pulse 98 Oximetry ED Medical Decision Making - Lab Data Result diagrams: 07/22/19 05:33 07/22/19 05:33 Laboratory Results - last 24 hr 07/22/19 07/22/19 05:33 05:33 WBC 6.4 RBC 5.33 H Hgb 16.9 H Hct 50.7 H MCV 95 H MCH 32 MCHC 33 RDW 14.1 Plt Count 215 Lymph % (Auto) 42.4 H [place] % (Auto) 7.3 Eos % (Auto) 7.3 H Baso % (Auto) 0.7 Lymph # 2.7 [place] # 0.5 Eos # 0.5 H Baso # 0.0 Seg Neutrophils % 42.3 Seg Neutrophils # 2.7 Sodium 144 Potassium 3.7 Chloride 106.0 Carbon Dioxide 27 Anion Gap 15 BUN 9 Creatinine 1.1 Estimated GFR > 60 BUN/Creatinine Ratio 8 Glucose 106 H Calcium 9.3 Total Bilirubin 0.20 AST 13 ALT 12 Alkaline Phosphatase 64 Total Protein 6.7 Albumin 4.1 Albumin/Globulin Ratio 1.6 Critical care attestation.: If time is entered above; I have spent that time in minutes in the direct care of this critically ill patient, excluding procedure time. ED Disposition Clinical Impression: Asthma with acute exacerbation Qualifiers: Asthma severity: moderate Asthma persistence: persistent Qualified Code(s): J45.41 - Moderate persistent asthma with (acute) exacerbation Disposition: - TO HOME OR SELFCARE Is pt being admited?: No Does the pt Need Aspirin: No Condition: Stable Instructions: Asthma (ED) Additional Instructions: Increase fluids. Rx as directed. Return to the emergency department any acute change or problem. Follow-up with primary care or [facility]. Use her home neb machine as needed. Prescriptions: predniSONE [Deltasone] 30 mg PO QDAY #25 tab ALBUTEROL NEB's [Proventil 0.083% NEBS] 2.5 mg IH TID PRN #1 box PRN Reason: Wheezing Montelukast [Singulair] 10 mg PO QPM #30 tablet Referrals: PRIMARY CARE, [Primary Care Provider] - 3-5 Days [facility] [Provider Group] - 2-3 Days Time of Disposition: 07:29
[2019-07-22 07:44] VITALS: BP 133/72
== END 2019-07-22 07:45 | disposition home or self-care (01) ==
LOC: ED 05:13
DX: J45.901 Unspecified asthma with (acute) exacerbation (principal); Z79.899 Other long term (current) drug therapy
CPT/HCPCS: 36415; 71045; 80053; 85025; 94644; 96365; 96375; 99284; J2930; J3475

== ENCOUNTER 2020-03-01 10:13 | Emergency (ER) | payer SELFPAY ==
[2020-03-01 10:32] VITALS: BP 136/86
--- NOTE | 2020-03-01 11:23 | Emergency Department Report ---
- General Chief complaint: Skin Rash Stated complaint: RASH ON NECK Time Seen by Provider: 03/01/20 11:18 Source: patient Mode of arrival: Ambulatory Limitations: No Limitations - History of Present Illness Initial comments: Patient is a 24-year-old male who presents emergency room complaints of a rash to the right side of his neck that began yesterday. He states it feels like a burning sensation. He denies any itching. He denies any new soaps, lotions, detergents, anything new he can think of. He denies any facial swelling, difficulty swallowing, difficulty breathing. He denies ever having this in the past. No fever, no vomiting, no diarrhea, no chills. He has a past medical history of asthma. No allergies to medications. - Related Data Previous Rx's Medication Instructions Recorded Last Taken Type Albuterol Mdi (or & Nicu Only) 2 puff IH QID PRN #1 inhalation 07/12/19 Unknown Rx [ProAir HFA Inhaler] Cetirizine HCl [ZyrTEC] 10 mg PO QAM 14 Days #14 capsule 07/12/19 Unknown Rx Fluticasone (Nf) [Flovent Hfa(Nf)] 2 puff IH BID #1 puff 07/12/19 Unknown Rx predniSONE [Deltasone] 20 mg PO DAILY #5 tablet 07/12/19 Unknown Rx ALBUTEROL NEB's [Proventil 0.083% 2.5 mg IH TID PRN #1 box 07/22/19 Unknown Rx NEBS] Montelukast [Singulair] 10 mg PO QPM #30 tablet 07/22/19 Unknown Rx predniSONE [Deltasone] 30 mg PO QDAY #25 tab 07/22/19 Unknown Rx Ibuprofen [Motrin 600 MG tab] 600 mg PO Q8H PRN #14 tablet 03/01/20 Unknown Rx Lidocaine [Lidocaine GEL] 1 applicatio TP BID #30 gel..gram. 03/01/20 Unknown Rx Valacyclovir HCl [Valacyclovir] 1,000 mg PO TID 7 Days #21 tablet 03/01/20 Unknown Rx traMADoL [Ultram 50 MG tab] 50 mg PO Q6HR PRN #12 tablet 03/01/20 Unknown Rx Allergies Allergy/AdvReac Type Severity Reaction Status Date / Time No Known Allergies Allergy Verified 03/01/20 10:29 Abscess Boil HPI - HPI Chief Complaint: Skin Rash Stated Complaint: RASH ON NECK Time Seen by Provider: 03/01/20 11:18 Home Medications: Previous Rx's Medication Instructions Recorded Last Taken Type Albuterol Mdi (or & Nicu Only) 2 puff IH QID PRN #1 inhalation 07/12/19 Unknown Rx [ProAir HFA Inhaler] Cetirizine HCl [ZyrTEC] 10 mg PO QAM 14 Days #14 capsule 07/12/19 Unknown Rx Fluticasone (Nf) [Flovent Hfa(Nf)] 2 puff IH BID #1 puff 07/12/19 Unknown Rx predniSONE [Deltasone] 20 mg PO DAILY #5 tablet 07/12/19 Unknown Rx ALBUTEROL NEB's [Proventil 0.083% 2.5 mg IH TID PRN #1 box 07/22/19 Unknown Rx NEBS] Montelukast [Singulair] 10 mg PO QPM #30 tablet 07/22/19 Unknown Rx predniSONE [Deltasone] 30 mg PO QDAY #25 tab 07/22/19 Unknown Rx Ibuprofen [Motrin 600 MG tab] 600 mg PO Q8H PRN #14 tablet 03/01/20 Unknown Rx Lidocaine [Lidocaine GEL] 1 applicatio TP BID #30 gel..gram. 03/01/20 Unknown Rx Valacyclovir HCl [Valacyclovir] 1,000 mg PO TID 7 Days #21 tablet 03/01/20 Unknown Rx traMADoL [Ultram 50 MG tab] 50 mg PO Q6HR PRN #12 tablet 03/01/20 Unknown Rx Allergies/Adverse Reactions: Allergies Allergy/AdvReac Type Severity Reaction Status Date / Time No Known Allergies Allergy Verified 03/01/20 10:29 ED Review of Systems ROS: Stated complaint: RASH ON NECK Other details as noted in HPI Comment: All other systems reviewed and negative ED Past Medical Hx - Past Medical History Hx Asthma: Yes - Surgical History Past Surgical History?: No - Social History Smoking Status: Current Every Day Smoker Substance Use Type: None - Medications Home Medications: Home Medications Medication Instructions Recorded Confirmed Last Taken Type Albuterol Mdi (or & Nicu Only) 2 puff IH QID PRN #1 inhalation 07/12/19 Unknown Rx [ProAir HFA Inhaler] Cetirizine HCl [ZyrTEC] 10 mg PO QAM 14 Days #14 capsule 07/12/19 Unknown Rx Fluticasone (Nf) [Flovent Hfa(Nf)] 2 puff IH BID #1 puff 07/12/19 Unknown Rx predniSONE [Deltasone] 20 mg PO DAILY #5 tablet 07/12/19 Unknown Rx ALBUTEROL NEB's [Proventil 0.083% 2.5 mg IH TID PRN #1 box 07/22/19 Unknown Rx NEBS] Montelukast [Singulair] 10 mg PO QPM #30 tablet 07/22/19 Unknown Rx predniSONE [Deltasone] 30 mg PO QDAY #25 tab 07/22/19 Unknown Rx Ibuprofen [Motrin 600 MG tab] 600 mg PO Q8H PRN #14 tablet 03/01/20 Unknown Rx Lidocaine [Lidocaine GEL] 1 applicatio TP BID #30 gel..gram. 03/01/20 Unknown Rx Valacyclovir HCl [Valacyclovir] 1,000 mg PO TID 7 Days #21 tablet 03/01/20 Unknown Rx traMADoL [Ultram 50 MG tab] 50 mg PO Q6HR PRN #12 tablet 03/01/20 Unknown Rx ED Physical Exam - General Limitations: No Limitations General appearance: alert, in no apparent distress - Head Head exam: Present: atraumatic, normocephalic - Eye Eye exam: Present: normal appearance - ENT ENT exam: Present: mucous membranes moist - Respiratory Respiratory exam: Absent: respiratory distress, accessory muscle use - Neurological Exam Neurological exam: Present: alert, oriented X3 - Psychiatric Psychiatric exam: Present: normal affect, normal mood - Skin Skin exam: Present: vesicles (vesicles present to the right side of the neck and right chest on erythematous base in a dermatomal distribution) ED Course Vital Signs 03/01/20 10:31 Temperature 98.1 F Pulse Rate 83 Respiratory 18 Rate Blood Pressure 136/86 O2 Sat by Pulse 98 Oximetry ED Medical Decision Making - Medical Decision Making Patient is a 24-year-old male who presents emergency room complaints of a rash to the right side of his neck that began yesterday. He states it feels like a burning sensation. He denies any itching. He denies any new soaps, lotions, detergents, anything new he can think of. He denies any facial swelling, difficulty swallowing, difficulty breathing. He denies ever having this in the past. No fever, no vomiting, no diarrhea, no chills. He has a past medical history of asthma. No allergies to medications. VSS. on exam: vesicles present to the right side of the neck and right chest on erythematous base in a dermatomal distribution. Examination appears consistent with shingles outbreak without complication. pt given prescription for valacyclovir, tramadol, ibuprofen, lidocaine gel. Advised patient Please use medication as prescribed. Please follow-up with your primary care doctor. Please discuss with your primary care doctor about shingles vaccine in about pain after shingles. Return to emergency room for any new or worsening symptoms. Critical care attestation.: If time is entered above; I have spent that time in minutes in the direct care of this critically ill patient, excluding procedure time. ED Disposition Clinical Impression: Shingles Qualifiers: Herpes zoster complications: without complications Qualified Code(s): B02.9 - Zoster without complications Disposition: TO HOME OR SELFCARE Is pt being admited?: No Does the pt Need Aspirin: No Condition: Stable Instructions: Shingles, [id number] Additional Instructions: Please use medication as prescribed. Please follow-up with your primary care doctor. Please discuss with your primary care doctor about shingles vaccine in about pain after shingles. Return to emergency room for any new or worsening symptoms. Prescriptions: Lidocaine [Lidocaine GEL] 1 applicatio TP BID #30 gel..gram. Ibuprofen [Motrin 600 MG tab] 600 mg PO Q8H PRN #14 tablet PRN Reason: Pain, Moderate (4-6) traMADoL [Ultram 50 MG tab] 50 mg PO Q6HR PRN #12 tablet PRN Reason: Pain , Severe (7-10) Valacyclovir HCl [Valacyclovir] 1,000 mg PO TID 7 Days #21 tablet Referrals: SYDNEY HODGES MD [Staff Physician] - 2-3 Days [facility] [Provider Group] - 2-3 Days [facility], [LAB/CONTRACT] - 2-3 Days Forms: Work/School Release Form(ED) Time of Disposition: 11:21 Print Language: ROMANIAN
== END 2020-03-01 12:00 | disposition home or self-care (01) ==
LOC: ED 10:13
DX: B02.9 Zoster without complications (principal); J45.909 Unspecified asthma, uncomplicated; F17.200 Nicotine dependence, unspecified, uncomplicated; Z79.899 Other long term (current) drug therapy
CPT/HCPCS: 99282

== ENCOUNTER 2020-03-04 08:24 | Emergency (ER) | payer SELFPAY ==
[2020-03-04] MEDS ORDERED: ACETAMINOPHEN 325 MG/10.15 ML ORAL LIQD UNIT DOSE PO ONE (08:43)
--- NOTE | 2020-03-04 11:30 | Emergency Department Report ---
ED ENT HPI - General Chief complaint: Sore Throat Stated complaint: THROAT HURTS Time Seen by Provider: 03/04/20 10:37 Source: patient Mode of arrival: Ambulatory Limitations: No Limitations - History of Present Illness Initial comments: This is a 24-year-old male presents to the emergency room with complaint of sore throat x2 days and low-grade fever he denied any chest pain shortness of breath no cough no ear pain no nausea no vomiting MD complaint: sore throat - Related Data Previous Rx's Medication Instructions Recorded Last Taken Type Albuterol Mdi (or & Nicu Only) 2 puff IH QID PRN #1 inhalation 07/12/19 Unknown Rx [ProAir HFA Inhaler] Cetirizine HCl [ZyrTEC] 10 mg PO QAM 14 Days #14 capsule 07/12/19 Unknown Rx Fluticasone (Nf) [Flovent Hfa(Nf)] 2 puff IH BID #1 puff 07/12/19 Unknown Rx predniSONE [Deltasone] 20 mg PO DAILY #5 tablet 07/12/19 Unknown Rx ALBUTEROL NEB's [Proventil 0.083% 2.5 mg IH TID PRN #1 box 07/22/19 Unknown Rx NEBS] Montelukast [Singulair] 10 mg PO QPM #30 tablet 07/22/19 Unknown Rx predniSONE [Deltasone] 30 mg PO QDAY #25 tab 07/22/19 Unknown Rx Ibuprofen [Motrin 600 MG tab] 600 mg PO Q8H PRN #14 tablet 03/01/20 Unknown Rx Lidocaine [Lidocaine GEL] 1 applicatio TP BID #30 gel..gram. 03/01/20 Unknown Rx Valacyclovir HCl [Valacyclovir] 1,000 mg PO TID 7 Days #21 tablet 03/01/20 Unknown Rx traMADoL [Ultram 50 MG tab] 50 mg PO Q6HR PRN #12 tablet 03/01/20 Unknown Rx Ibuprofen [Motrin] 600 mg PO Q8H PRN #15 tablet 03/04/20 Unknown Rx Penicillin V Potassium 500 mg PO BID 10 Days #20 tablet 03/04/20 Unknown Rx Allergies Allergy/AdvReac Type Severity Reaction Status Date / Time No Known Allergies Allergy Verified 03/01/20 10:29 ED Dental HPI - General Chief complaint: Sore Throat Stated complaint: THROAT HURTS Time Seen by Provider: 03/04/20 10:37 Source: patient Mode of arrival: Ambulatory Limitations: No Limitations - Related Data Previous Rx's Medication Instructions Recorded Last Taken Type Albuterol Mdi (or & Nicu Only) 2 puff IH QID PRN #1 inhalation 07/12/19 Unknown Rx [ProAir HFA Inhaler] Cetirizine HCl [ZyrTEC] 10 mg PO QAM 14 Days #14 capsule 07/12/19 Unknown Rx Fluticasone (Nf) [Flovent Hfa(Nf)] 2 puff IH BID #1 puff 07/12/19 Unknown Rx predniSONE [Deltasone] 20 mg PO DAILY #5 tablet 07/12/19 Unknown Rx ALBUTEROL NEB's [Proventil 0.083% 2.5 mg IH TID PRN #1 box 07/22/19 Unknown Rx NEBS] Montelukast [Singulair] 10 mg PO QPM #30 tablet 07/22/19 Unknown Rx predniSONE [Deltasone] 30 mg PO QDAY #25 tab 07/22/19 Unknown Rx Ibuprofen [Motrin 600 MG tab] 600 mg PO Q8H PRN #14 tablet 03/01/20 Unknown Rx Lidocaine [Lidocaine GEL] 1 applicatio TP BID #30 gel..gram. 03/01/20 Unknown Rx Valacyclovir HCl [Valacyclovir] 1,000 mg PO TID 7 Days #21 tablet 03/01/20 Unknown Rx traMADoL [Ultram 50 MG tab] 50 mg PO Q6HR PRN #12 tablet 03/01/20 Unknown Rx Ibuprofen [Motrin] 600 mg PO Q8H PRN #15 tablet 03/04/20 Unknown Rx Penicillin V Potassium 500 mg PO BID 10 Days #20 tablet 03/04/20 Unknown Rx Allergies Allergy/AdvReac Type Severity Reaction Status Date / Time No Known Allergies Allergy Verified 03/01/20 10:29 ED Review of Systems ROS: Stated complaint: THROAT HURTS Other details as noted in HPI ED Past Medical Hx - Past Medical History Previous Medical History?: Yes Hx Asthma: Yes - Surgical History Past Surgical History?: No - Social History Smoking Status: Current Every Day Smoker Substance Use Type: Alcohol, Marijuana - Medications Home Medications: Home Medications Medication Instructions Recorded Confirmed Last Taken Type Albuterol Mdi (or & Nicu Only) 2 puff IH QID PRN #1 inhalation 07/12/19 Unknown Rx [ProAir HFA Inhaler] Cetirizine HCl [ZyrTEC] 10 mg PO QAM 14 Days #14 capsule 07/12/19 Unknown Rx Fluticasone (Nf) [Flovent Hfa(Nf)] 2 puff IH BID #1 puff 07/12/19 Unknown Rx predniSONE [Deltasone] 20 mg PO DAILY #5 tablet 07/12/19 Unknown Rx ALBUTEROL NEB's [Proventil 0.083% 2.5 mg IH TID PRN #1 box 07/22/19 Unknown Rx NEBS] Montelukast [Singulair] 10 mg PO QPM #30 tablet 07/22/19 Unknown Rx predniSONE [Deltasone] 30 mg PO QDAY #25 tab 07/22/19 Unknown Rx Ibuprofen [Motrin 600 MG tab] 600 mg PO Q8H PRN #14 tablet 03/01/20 Unknown Rx Lidocaine [Lidocaine GEL] 1 applicatio TP BID #30 gel..gram. 03/01/20 Unknown Rx Valacyclovir HCl [Valacyclovir] 1,000 mg PO TID 7 Days #21 tablet 03/01/20 Unknown Rx traMADoL [Ultram 50 MG tab] 50 mg PO Q6HR PRN #12 tablet 03/01/20 Unknown Rx Ibuprofen [Motrin] 600 mg PO Q8H PRN #15 tablet 03/04/20 Unknown Rx Penicillin V Potassium 500 mg PO BID 10 Days #20 tablet 03/04/20 Unknown Rx ED Physical Exam - General Limitations: No Limitations General appearance: alert - Eye Eye exam: Present: normal appearance - ENT ENT exam: Present: TM's normal bilaterally, other (Tonsillar exudate bilaterally) ED Course Vital Signs 03/04/20 03/04/20 03/04/20 08:36 08:40 13:20 Temperature 100.7 F H 100.7 F H 98.7 F Pulse Rate 100 H 100 H 96 H Respiratory 20 20 18 Rate Blood Pressure 126/78 Blood Pressure 126/78 126/76 [Right] O2 Sat by Pulse 95 95 95 Oximetry Critical Care Time: No Critical care attestation.: If time is entered above; I have spent that time in minutes in the direct care of this critically ill patient, excluding procedure time. ED Disposition Clinical Impression: Exudative pharyngitis Disposition: DC- TO HOME OR SELFCARE Is pt being admited?: No Does the pt Need Aspirin: No Condition: Stable Instructions: Pharyngitis Additional Instructions: Warm salt water gargles at least 3 times a day. Take ibuprofen every 6 hours as needed for pain. Take amoxicillin as prescribed. Follow-up with your own doctor in 3 to 5 days. Return to the emergency room if you have any difficulty breathing or swallowing. The rapid strep test done in the ER was negative Prescriptions: Ibuprofen [Motrin] 600 mg PO Q8H PRN #15 tablet PRN Reason: Pain Penicillin V Potassium 500 mg PO BID 10 Days #20 tablet Referrals: PRIMARY CAREMD [Primary Care Provider] - 3-5 Days SYDNEY HODGES MD [Staff Physician] - 3-5 Days Time of Disposition: 13:00
[2020-03-04 13:21] VITALS: BP 126/76
== END 2020-03-04 13:21 | disposition home or self-care (01) ==
LOC: ED 08:24
DX: J02.9 Acute pharyngitis, unspecified (principal); J45.909 Unspecified asthma, uncomplicated; F17.200 Nicotine dependence, unspecified, uncomplicated; F12.90 Cannabis use, unspecified, uncomplicated; Z79.899 Other long term (current) drug therapy
CPT/HCPCS: 87116; 87430

== ENCOUNTER 2021-02-04 12:06 | Emergency (ER) | payer SELFPAY ==
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
[2021-02-04 13:18] VITALS: BP 127/92
== END 2021-02-04 13:20 | disposition home or self-care (01) ==
LOC: ED 12:06
DX: S16.1XXA Strain of muscle, fascia and tendon at neck level, initial encounter (principal); V49.88XA Car occupant (driver) (passenger) injured in other specified transport accidents, initial encounter; Y93.89 Activity, other specified; Y99.8 Other external cause status; Y92.89 Other specified places as the place of occurrence of the external cause; J45.909 Unspecified asthma, uncomplicated; F17.200 Nicotine dependence, unspecified, uncomplicated
CPT/HCPCS: 99282

== ENCOUNTER 2021-05-18 03:51 | Emergency (ER) | payer SELFPAY ==
--- NOTE | 2021-05-18 05:08 | Emergency Department Report ---
- General Chief Complaint: Earache Stated Complaint: SWOLLEN EAR Source: patient, family Mode of arrival: Ambulatory Limitations: No Limitations - History of Present Illness Initial Comments: Patient is a 25-year-old -Beninese male with a history of asthma who presents to the ED with complaint of acute onset persistent nasal and sinus congestion, right ear pain with mild feeling for the last 1 week. Patient states that he has been taking [id number] medications with no relief. Patient states in the last 24 hours, the pain is worsened in the right ear. Patient denies fever, chills, cough, chest pain, shortness of breath, wheezing, sore throat, nausea and vomiting, diarrhea, abdominal pain, change in vision or neck pain. MD Complaint: other (Right ear pain) -: Sudden, week(s) (1) Severity: severe Severity scale (0 -10): 7 Quality: sharp, aching Consistency: constant Improves With: nothing Worsens With: nothing Associated Symptoms: denies other symptoms, rhinorrhea, nasal congestion, ear pain (Right ear pain). denies: fever, chills, myalgias, diaphoresis, headache, sore throat, cough, abdominal pain, nausea, vomiting, diarrhea, dysuria, rash, confusion, right sweats, epistaxis Treatments Prior to Arrival: none - Related Data Previous Rx's Medication Instructions Recorded Last Taken Type Albuterol Mdi (or & Nicu Only) 2 puff IH QID PRN #1 inhalation 07/12/19 Unknown Rx [ProAir HFA Inhaler] Fluticasone (Nf) [Flovent Hfa(Nf)] 2 puff IH BID #1 puff 07/12/19 Unknown Rx predniSONE [Deltasone] 20 mg PO DAILY #5 tablet 07/12/19 Unknown Rx ALBUTEROL NEB's [Proventil 0.083% 2.5 mg IH TID PRN #1 box 07/22/19 Unknown Rx NEBS] Montelukast [Singulair] 10 mg PO QPM #30 tablet 07/22/19 Unknown Rx predniSONE [Deltasone] 30 mg PO QDAY #25 tab 07/22/19 Unknown Rx Lidocaine [Lidocaine GEL] 1 applicatio TP BID #30 gel..gram. 03/01/20 Unknown Rx Valacyclovir HCl [Valacyclovir] 1,000 mg PO TID 7 Days #21 tablet 03/01/20 Unknown Rx traMADoL [Ultram 50 MG tab] 50 mg PO Q6HR PRN #12 tablet 03/01/20 Unknown Rx Penicillin V Potassium 500 mg PO BID 10 Days #20 tablet 03/04/20 Unknown Rx Ibuprofen [Motrin 600 MG tab] 600 mg PO Q8H PRN #15 tablet 02/04/21 Unknown Rx methOCARBAMOL [Robaxin TAB] 750 mg PO Q8H PRN #15 tablet 02/04/21 Unknown Rx Amoxicillin/Potassium Clav 1 each PO Q12H #20 tab 05/18/21 Unknown Rx [Augmentin 875-125 Tablet] Cetirizine HCl [ZyrTEC 10mg cap] 10 mg PO QAM #30 capsule 05/18/21 Unknown Rx Ibuprofen [Motrin 600 MG tab] 600 mg PO Q8H PRN #30 tablet 05/18/21 Unknown Rx Allergies Allergy/AdvReac Type Severity Reaction Status Date / Time No Known Allergies Allergy Verified 03/01/20 10:29 ED Review of Systems ROS: Stated complaint: SWOLLEN EAR Other details as noted in HPI Constitutional: denies: chills, fever Eyes: denies: eye pain, eye discharge, vision change ENT: ear pain (Right ear pain), congestion. denies: throat pain Respiratory: denies: cough, shortness of breath, wheezing Cardiovascular: denies: chest pain, palpitations Endocrine: no symptoms reported Gastrointestinal: denies: abdominal pain, nausea, vomiting, diarrhea Genitourinary: denies: urgency, dysuria Musculoskeletal: denies: back pain, joint swelling, arthralgia Skin: denies: rash, lesions Neurological: denies: headache, weakness, paresthesias Psychiatric: denies: anxiety, depression Hematological/Lymphatic: denies: easy bleeding, easy bruising ED Past Medical Hx - Past Medical History Previous Medical History?: Yes Hx Asthma: Yes - Surgical History Past Surgical History?: No - Social History Smoking Status: Current Every Day Smoker Substance Use Type: Alcohol, Marijuana - Medications Home Medications: Home Medications Medication Instructions Recorded Confirmed Last Taken Type Albuterol Mdi (or & Nicu Only) 2 puff IH QID PRN #1 inhalation 07/12/19 Unknown Rx [ProAir HFA Inhaler] Fluticasone (Nf) [Flovent Hfa(Nf)] 2 puff IH BID #1 puff 07/12/19 Unknown Rx predniSONE [Deltasone] 20 mg PO DAILY #5 tablet 07/12/19 Unknown Rx ALBUTEROL NEB's [Proventil 0.083% 2.5 mg IH TID PRN #1 box 07/22/19 Unknown Rx NEBS] Montelukast [Singulair] 10 mg PO QPM #30 tablet 07/22/19 Unknown Rx predniSONE [Deltasone] 30 mg PO QDAY #25 tab 07/22/19 Unknown Rx Lidocaine [Lidocaine GEL] 1 applicatio TP BID #30 gel..gram. 03/01/20 Unknown Rx Valacyclovir HCl [Valacyclovir] 1,000 mg PO TID 7 Days #21 tablet 03/01/20 Unknown Rx traMADoL [Ultram 50 MG tab] 50 mg PO Q6HR PRN #12 tablet 03/01/20 Unknown Rx Penicillin V Potassium 500 mg PO BID 10 Days #20 tablet 03/04/20 Unknown Rx Ibuprofen [Motrin 600 MG tab] 600 mg PO Q8H PRN #15 tablet 02/04/21 Unknown Rx methOCARBAMOL [Robaxin TAB] 750 mg PO Q8H PRN #15 tablet 02/04/21 Unknown Rx Amoxicillin/Potassium Clav 1 each PO Q12H #20 tab 05/18/21 Unknown Rx [Augmentin 875-125 Tablet] Cetirizine HCl [ZyrTEC 10mg cap] 10 mg PO QAM #30 capsule 05/18/21 Unknown Rx Ibuprofen [Motrin 600 MG tab] 600 mg PO Q8H PRN #30 tablet 05/18/21 Unknown Rx ED Physical Exam - General Limitations: No Limitations General appearance: alert, in no apparent distress - Head Head exam: Present: atraumatic, normocephalic, normal inspection - Eye Eye exam: Present: normal appearance, PERRL, EOMI Pupils: Present: normal accommodation - ENT ENT exam: Present: normal orophraynx, mucous membranes moist, normal external ear exam, other (Grossly congested nasal passages; mild erythematous bulging bilateral tympanic membranes) - Neck Neck exam: Present: normal inspection, full ROM. Absent: tenderness - Respiratory Respiratory exam: Present: normal lung sounds bilaterally. Absent: respiratory distress, wheezes, rales, rhonchi, chest wall tenderness, accessory muscle use, decreased breath sounds, prolonged expiratory - Cardiovascular Cardiovascular Exam: Present: regular rate, normal rhythm, normal heart sounds. Absent: systolic murmur, diastolic murmur, rubs, gallop - GI/Abdominal GI/Abdominal exam: Present: soft, normal bowel sounds. Absent: tenderness, guarding, rebound, hyperactive bowel sounds, hypoactive bowel sounds, organomegaly, mass - Extremities Exam Extremities exam: Present: normal inspection, full ROM, normal capillary refill - Back Exam Back exam: Present: normal inspection, full ROM. Absent: tenderness, CVA tenderness (R), CVA tenderness (L), muscle spasm, paraspinal tenderness - Neurological Exam Neurological exam: Present: alert, oriented X3, CN II-XII intact, normal gait, reflexes normal - Psychiatric Psychiatric exam: Present: normal affect, normal mood - Skin Skin exam: Present: warm, dry, intact, normal color. Absent: rash ED Course Vital Signs 05/18/21 04:22 Temperature 98.1 F Pulse Rate 71 Respiratory 17 Rate Blood Pressure 132/93 [Right] O2 Sat by Pulse 98 Oximetry ED Medical Decision Making - Medical Decision Making This is a 25-year-old -[place] male with a history of asthma who presents to the ED with complaint of acute onset persistent nasal and sinus congestion, right ear pain with mild feeling for the last 1 week. Patient states that he has been taking [id number] medications with no relief. Patient states in the last 24 hours, the pain has worsened in the right ear. In the ED, patient is alert and oriented x3 and is not in any distress. Patient was discharged home on medications based on the history and physical exam findings of bilateral otitis media with effusion. Patient was advised to follow-up with his primary care physician in 7 to 10 days for reevaluation. Patient was advised return to the ED immediately if symptoms get worse. - Differential Diagnosis Otitis media; URI; sinusitis Critical care attestation.: If time is entered above; I have spent that time in minutes in the direct care of this critically ill patient, excluding procedure time. ED Disposition Clinical Impression: Acute otitis media with effusion of both ears, Acute upper respiratory infection Disposition: HOME / SELF CARE / HOMELESS Is pt being admited?: No Does the pt Need Aspirin: No Condition: Stable Instructions: Upper Respiratory Infection, Adult, [id number], Otitis Media, A dult, [id number] Additional Instructions: Take medication with food, drink plenty of fluids and follow-up with your primary care physician in 7 to 10 days for reevaluation. Return to the ED immediately if symptoms get worse. Prescriptions: Amoxicillin/Potassium Clav [Augmentin 875-125 Tablet] 1 each PO Q12H #20 tab Ibuprofen [Motrin 600 MG tab] 600 mg PO Q8H PRN #30 tablet PRN Reason: Pain , Severe (7-10) Cetirizine HCl [ZyrTEC 10mg cap] 10 mg PO QAM #30 capsule Referrals: [facility] [Provider Group] - 7-10 days Time of Disposition: 05:06 Print Language: CZECH
[2021-05-18 05:52] VITALS: BP 133/88
== END 2021-05-18 05:54 | disposition home or self-care (01) ==
LOC: ED 03:51
DX: H65.193 Other acute nonsuppurative otitis media, bilateral (principal); J06.9 Acute upper respiratory infection, unspecified; J45.909 Unspecified asthma, uncomplicated; F12.90 Cannabis use, unspecified, uncomplicated; Z72.89 Other problems related to lifestyle; Z79.899 Other long term (current) drug therapy
CPT/HCPCS: 99282

== ENCOUNTER 2021-08-19 15:16 | Emergency (ER) | payer SELFPAY ==
[2021-08-19 15:38] VITALS: BP 121/80
--- NOTE | 2021-08-19 17:17 | Emergency Department Report ---
ED Rash HPI - HPI Chief Complaint: Skin Rash Stated Complaint: RASH ON STOMACH AND BACK Time Seen by Provider: 08/19/21 17:05 Duration: 1 year Location: Back, Abdomen Suspected Cause: Unknown Rash Symptoms: Yes Itching, No Facial Swelling, No Tongue/Oral Swelling, No Breathing Difficulties, No Choking Sensation, No Wheezing/Dyspnea, No Peeling, No Blistering, No Fever, No Lightheaded, No Malaise, No Myalgias Severity: mild Other History: This is a 25-year-old male nontoxic, well nourished in appearance, no acute signs of distress presents to the ED with c/o of acute on chronic intermittent scaly circular patches to abdomen and back x1 year. Patient otherwise denies any other symptoms or complaints. Patient denies any fever, chills, nausea, vomiting, chest pain, shortness of breath, headache, stiff neck, numbness or tingling. Patient denies any allergies or significant past medical history. ED Review of Systems ROS: Stated complaint: RASH ON STOMACH AND BACK Other details as noted in HPI Constitutional: denies: chills, fever Eyes: denies: eye pain, eye discharge, vision change ENT: denies: ear pain, throat pain Respiratory: denies: cough, shortness of breath, wheezing Cardiovascular: denies: chest pain, palpitations Endocrine: no symptoms reported Gastrointestinal: denies: abdominal pain, nausea, diarrhea Genitourinary: denies: urgency, dysuria Musculoskeletal: denies: back pain, joint swelling, arthralgia Skin: rash. denies: lesions, change in color, change in hair/nails, pruritus Neurological: denies: headache, weakness, paresthesias Psychiatric: denies: anxiety, depression Hematological/Lymphatic: denies: easy bleeding, easy bruising ED Past Medical Hx - Past Medical History Hx Asthma: Yes - Surgical History Past Surgical History?: No - Social History Smoking Status: Current Every Day Smoker Substance Use Type: Marijuana - Medications Home Medications: Home Medications Medication Instructions Recorded Confirmed Last Taken Type Albuterol Mdi (or & Nicu Only) 2 puff IH QID PRN #1 inhalation 07/12/19 Unknown Rx [ProAir HFA Inhaler] Fluticasone (Nf) [Flovent Hfa(Nf)] 2 puff IH BID #1 puff 04/20/20 Unknown Rx predniSONE [Deltasone] 20 mg PO DAILY #5 tablet 07/12/19 Unknown Rx ALBUTEROL NEB's [Proventil 0.083% 2.5 mg IH TID PRN #1 box 07/22/19 Unknown Rx NEBS] Montelukast [Singulair] 10 mg PO QPM #30 tablet 07/22/19 Unknown Rx predniSONE [Deltasone] 30 mg PO QDAY #25 tab 07/22/19 Unknown Rx Lidocaine [Lidocaine GEL] 1 applicatio TP BID #30 gel..gram. 03/01/20 Unknown Rx Valacyclovir HCl [Valacyclovir] 1,000 mg PO TID 7 Days #21 tablet 03/01/20 Unknown Rx traMADoL [Ultram 50 MG tab] 50 mg PO Q6HR PRN #12 tablet 03/01/20 Unknown Rx Penicillin V Potassium 500 mg PO BID 10 Days #20 tablet 03/04/20 Unknown Rx Ibuprofen [Motrin 600 MG tab] 600 mg PO Q8H PRN #15 tablet 02/04/21 Unknown Rx methOCARBAMOL [Robaxin TAB] 750 mg PO Q8H PRN #15 tablet 02/04/21 Unknown Rx Amoxicillin/Potassium Clav 1 each PO Q12H #20 tab 05/18/21 Unknown Rx [Augmentin 875-125 Tablet] Cetirizine HCl [ZyrTEC 10mg cap] 10 mg PO QAM #30 capsule 05/18/21 Unknown Rx Ibuprofen [Motrin 600 MG tab] 600 mg PO Q8H PRN #30 tablet 05/18/21 Unknown Rx Clotrimazole 1% [Lotrimin 1%] 1 applic TP BID #1 tube 08/19/21 Unknown Rx Rash Exam - Exam General: Vital signs noted. No distress. Alert and acting appropriately. HEENT: No Periorbital Edema, No Conjuctival Injection, No Chemosis, No Perioral Edema, No Tongue Edema, No Uvular Edema, No Compromised Airway, No Drooling Lungs: Yes Good Air Exchange (Normal Breath Sounds), No Wheezes, No Ronchi, No Stridor, No Cough, No Labored Respirations, No Retractions, No Use of Accessory Muscles, No Other Abnormal Lung Sounds Heart: Yes Regular, No Murmur Skin: Yes Other (scaly pathcy rash to abdomen and back area), No Urticarial Rash, No Maculopapular Rash, No Morbilliform rash, No Bulla(e), No Excoriations, No Weeping, No Tenderness, No Erythema, No Edema, No Encrustations Other: Positive: Abdomen Normal, Neurologic Normal, Musculoskeletal Normal ED Course Vital Signs 08/19/21 15:34 Temperature 98.6 F Pulse Rate 92 H Respiratory 18 Rate Blood Pressure 121/80 O2 Sat by Pulse 98 Oximetry - Reevaluation(s) Reevaluation #1: 08/19/21 17:07 Patient is speaking in full sentences with no signs of distress noted. ED Medical Decision Making - Medical Decision Making 25-year-old male that presents with Tinea versicolor. Patient is stable and was examined by me. I will discharge patient with clotrimazole. Otherwise physical exam is unremarkable. Vital signs are stable at discharge. Patient was instructed to follow-up with a key carrier doctor in 3-5 days or if symptoms worsen and continue return to emergency room as soon as possible. At time of discharge, the patient does not seem toxic or ill in appearance. No acute signs of distress noted. Patient agrees to discharge treatment plan of care. No further questions noted by the patient. Critical care attestation.: If time is entered above; I have spent that time in minutes in the direct care of this critically ill patient, excluding procedure time. ED Disposition Clinical Impression: Tinea versicolor Disposition: 01 HOME / SELF CARE / HOMELESS Is pt being admited?: No Does the pt Need Aspirin: No Condition: Stable Instructions: Tinea Versicolor, [id number] Additional Instructions: Follow-up with a key carrier doctor in 3-5 days or if symptoms worsen and continue return to emergency room as soon as possible. Prescriptions: Clotrimazole 1% [Lotrimin 1%] 1 applic TP BID #1 tube Referrals: [facility]IMARY [facility] [Referring] - 3-5 Days SYDNEY HODGES MD [Staff Physician] - 3-5 Days Time of Disposition: 17:09
== END 2021-08-19 17:10 | disposition home or self-care (01) ==
LOC: ED 15:16
DX: B36.0 Pityriasis versicolor (principal)
CPT/HCPCS: 99282